=== PATIENT | female | born 1995 | race Caucasian/White ===

== ENCOUNTER → 2020-08-10 | Day surgery (SDC) | payer OTHER ==
[~2020-08-10] MED LIST: BLACK ELDERBER1 EACH PO; FLUOXETINE HCL10 M1 PO; MOBIC15 MG PO; MYSOLINE250 MG PO; NORCO 5-325 TA1 EACH PO; VITAMIN E400 UNI2 PO; ZINC50 M2 PO
[2020-08-10 10:00] LABS: HCG (URINE) SCREEN NEGATIVE (NEGATIVE)
[2020-08-10 10:25] LABS: HGB 14.8 g/dl (12.5-16.0); MCH 27.4 pg (25.0-31.0); MCHC 32.9 g/dL (32.0-36.0); MCV 83.2 fL (78.0-100.0); MPV 10.7 fL (6.0-9.5); RBC 5.41 M/uL (4.20-5.40); RDW 13.2 % (11.5-14.0); WBC 6.2 K/uL (4.0-10.5)
[2020-08-10 10:48] LABS: ALBUMIN 4.2 g/dL (3.4-5.0); BILIRUBIN - TOTAL 0.3 mg/dL (0.2-1.0); BUN/CREAT RATIO (CALC) 15.6 RATIO; CREATININE 0.77 mg/dL (0.51-0.95); GLOBULIN (CALCULATION) 4.4 g/dL; POTASSIUM 4.1 mmol/L (3.5-5.1); TOTAL PROTEIN 8.6 g/dL (6.4-8.2)
== END | disposition home or self-care (01) ==
LOC: FAS 09:26
PROVIDERS: Surgery
DX: K62.5 Hemorrhage of anus and rectum (principal); K58.9 Irritable bowel syndrome, unspecified; G25.0 Essential tremor; K21.9 Gastro-esophageal reflux disease without esophagitis; F41.9 Anxiety disorder, unspecified; F32.9 Major depressive disorder, single episode, unspecified; Z79.899 Other long term (current) drug therapy; Z88.2 Allergy status to sulfonamides
CPT/HCPCS: 36415; 80053; 84703; J2250; J2704; J7120